=== PATIENT | female | born 1965 | race Caucasian/White ===

== ENCOUNTER 2016-11-29 19:51 | Emergency (ER) | payer MEDICARE, OTHER ==
[~2016-11-29 19:51] MED LIST: ABILIFY10 PO; ABILIFY15 PO; ADVAIR250 INH; AFEDITAB30 MG PO; ALBUTEROL5 INH; ALER-CAP25 MG PO; AMBIEN CR12.5 MG PO; APRES25 PO; APRES50 PO; ASAB PO; ASACOL 400MG PO; ASACOL HD800 MG PO; ASACOL PO; ATARAX50B PO; ATV.5 PO; ATV1 PO; AUG500 PO; BEN25 PO; C5 PO; CALTRA600D PO; CAT1 PO; CAT3 PO; CENTRUM TAB1 TAB PO; CLARIT10 PO; COREG12 PO; COREG25 PO; COUMADIN4 MG PO; COUMADIN6 MG PO; COZ50 PO; COZAAR100 MG PO; DELZICOL 400 M400 MG PO; DEMA100 PO; DEMA20 PO; DEPAK250ER PO; DIL2TAB PO; DIOV160 PO; DSS PO; DURA25 TOP; EMLA TOP; FISH-EPA1000 MG PO; FLEX PO; FLORASTOR250 MG PO; FLUCON150 PO; GLUCOTRO10 PO; HUMALOG PUMP; HUMALOG SC; HUMALOGPEN SC; HUMAMIXPEN SC; HUMAPUMP SC; IMOD PO; INVANZ1 G1 IV; IODOSORB TOP; JANUVIA100 MG PO; L20 PO; L40 PO; LANTUS SC; LEVAQUIN5T PO; LEVOTHYROXIN100 MCG PO; LEVOXYL100 MCG PO; LIDODERM T; LIDODERM TOP; LISINOPRIL40 MG PO; LORTAB 5 PO; LORTAB10 PO; LOSARTAN PO; LOVENOX40 SC; LOZOLTAB PO; MACROBID PO; MAGOX4 PO; MAXALT10 MG PO; MEDI HONEY TOP; MELA3 PO; MEVACOR40 MG PO; MIDODRINE10 MG OR; MIRALAXPKT PO; MOMUD PO; MORPHINE SULFATE; MULTIPLE VIT PO; MULTIVITAMI1 PO; MYTAB GAS125 MG PO; NARCAN SC; NASONEX NAS; NEO-OINT TOP; NEUR100 PO; NEUR300 PO; NEUR600 PO; NEUR800 PO; NEXIUM40 PO; NITROQUICK0.4 MG SL; NORCO1 TA1 PO; NORCO1 TA2 PO; NORCO1 TAB PO; NORV10 PO; NORV25 PO; NORV5 PO; NOVLOGPUMP SC; NOVOLOG; NOVOLOG PUMP SC; NOVOLOG SC; OXYCOD5CAP PO; OXYCON10 PO; OXYCONTIN15 MG PO; OXYCONTIN30 MG PO; PAX20 PO; PAXIL30 MG PO; PCET PO; PERCOCET1 TA4 PO; PHENERGAN25 MG/ML PO; PHOSLO PO; PR12.5 PO; PR25 PO; PR25R PR; PRENATABS PO; PRILOSEC40 MG PO; PRIN10 PO; PRIN20 PO; PROAIR HFA INH; PROAIR HFA PO; PROTONIX PO; PROVENTSOL INH; REG PO; REG5 PO; REGLAN5 MG OR; RENVELA800 MG PO; RESTORIL30 MG OR; SEROQUEL XR400 MG PO; SEROQUEL400 MG PO; SILVADENE1 % TOP; SODBICAR10 PO; SORB PO; SPIRIVA INH; SYMBICORT 160/41 INH INH; SYMBICORT INH; SYMBICORT PO; SYN1 PO; SYN112 PO; SYN88 PO; SYNTEST H.S. PO; T PO; TOPAMAX25 PO; TORATAB PO; TRICOR145 PO; TUMSROLL PO; UTA OR; VENTOLIN HFA INH; VITAMIN C100 MG PO; VITAMIN D1000 UNI1 PO; VITC500 PO; VOLTAREN1 % TOP; X25 PO; Z100 PO; ZAROX2.5B PO; ZOCOR20 PO; ZOCOR40 PO; ZOCOR80 MG PO; ZOFRAN ODT4 MG PO; ZOFRAN4 PO; ZOSYN; ZOSYN375 IV; ZYDONE1 TA2 PO; ZYRTEC ALLGY10 MG PO; ZYVOXPO PO; [UNRECOGNIZED DRUG - MIXTURE]; [UNRECOGNIZED DRUG - OTHER]; [UNRECOGNIZED DRUG - OTHER]; [UNRECOGNIZED DRUG - OTHER] OR; [UNRECOGNIZED DRUG - OTHER] PO; [UNRECOGNIZED DRUG - OTHER] PO
[2016-11-29 20:14] LABS: BASOPHILS 0.6 %; BASOPHILS ABSOLUTE 0.08 10/3/uL (0.0-0.16); EOSINOPHILS 3.8 %; EOSINOPHILS ABSOLUTE 0.54 10/3/uL (0.0-0.53); ER CBC TAT 0 Hrs 11 Mins; HEMATOCRIT 31.5 % (36.0-48.0); HEMOGLOBIN 9.7 g/dL (12.0-16.0); IMMATURE GRANULOCYTES 1.9 %; IMMATURE GRANULOCYTES ABSOLUTE 0.27 10/3/uL (0.0-0.11); LYMPHOCYTES 17.8 %; LYMPHOCYTES ABSOLUTE 2.52 10/3/uL (0.67-4.30); MANUAL DIFF NO %; MEAN CORPUS HGB CONC 30.8 g/dL (32.0-36.0); MEAN CORPUSCULAR HEMOGLOB 32.8 pg (26.0-34.0); MEAN CORPUSCULAR VOLUME 106.4 fL (80-100); MEAN PLATELET VOLUME 9.4 fL (9.2-13.0); MONOCYTES 5.1 %; MONOCYTES ABSOLUTE 0.72 10/3/uL (0.21-1.20); NEUTROPHILS 70.8 %; NUCLEATED RED BLOOD CELLS 0.4 /100WBC (0-0); PLATELET COUNT 320 10/3/uL (150-400); RBC DISTRIBUTION WIDTH 15.9 % (12.0-16.0); RED CELL COUNT 2.96 10/6/uL (4.0-5.6); WHITE BLOOD CELLS 14.1 10/3/uL (4.5-10.5)
[2016-11-29 20:23] LABS: A/G RATIO 0.4 (0.7-1.9); ALBUMIN 2.5 G/DL (3.5-5.0); ALKALINE PHOSPHATASE 407 U/L (45-117); BUN (BLOOD UREA NITROGEN) 22 MG/DL (6-23); CALCIUM, SERUM 8.7 MG/DL (8.5-10.4); CHLORIDE, SERUM 94 MMOL/L (96-112); CO2 (CARBON DIOXIDE) 30 MMOL/L (24-34); CREATININE 3.96 MG/DL (0.55-1.02); GFR AFRICAN AMERICAN 14 ML/MIN (>=60); GFR NON AFRICAN AMERICAN 12 ML/MIN (>=60); GLOBULIN 5.7 G/DL (2.5-4.1); GLUCOSE, SERUM 154 MG/DL (60-99); POTASSIUM, SERUM 3.9 MMOL/L (3.5-5.3); SGOT(AST) 46 U/L (5-40); SGPT(ALT) 38 U/L (5-65); SODIUM, SERUM 131 MMOL/L (135-148); TOTAL BILIRUBIN 0.3 MG/DL (0-1.2); TOTAL PROTEIN 8.2 G/DL (6.0-8.5)
[2016-11-29 20:31] LABS: ASCORBIC ACID (UR NOT ORDER) NEG (NEG); BILIRUBIN, URINE NEGATIVE (NEG); ER URINALYSIS TAT 0 Hrs 25 Mins; KETONE, URINE NEGATIVE (NEG); LEUKOCYTE ESTERASE(NOT OR LARGE (NEG); NITRITE (URINE) NEG (NEG); WBC (NOT ORDERED) (RFLEX) > 182 (0-5)
[2017-02-14] MEDS ORDERED: LEVEMIR SC (22:51)
[2017-02-14] MEDS ORDERED: COREG12 PO (22:51)
[2017-02-14] MEDS ORDERED: NEUR600 PO ×2 (22:52)
[2017-02-14] MEDS ORDERED: NORV5 PO (22:52)
[2017-02-14] MEDS ORDERED: NOVOLOG SC (22:52)
[2017-02-14] MEDS ORDERED: DEMA100 PO (22:53)
[2017-02-14] MEDS ORDERED: ZAROX2.5B PO (22:53)
[2017-02-14] MEDS ORDERED: ZOFRAN4 PO (22:53)
[2017-02-14] MEDS ORDERED: DSS PO (22:53)
[2017-02-14] MEDS ORDERED: PERCOCET 10/3251 TAB PO (22:54)
[2017-02-14] MEDS ORDERED: DURA12 TOP (22:54)
[2017-02-14] MEDS ORDERED: PROTONIX PO (22:55)
[2017-02-14] MEDS ORDERED: ANASPAZ0.125 MG PO (22:55)
[2017-02-14] MEDS ORDERED: SEROQUEL400 MG PO (22:55)
[2017-02-14] MEDS ORDERED: DURA25 TOP (22:55)
[2017-02-14] MEDS ORDERED: NYSTATPOW TOP (22:56)
[2017-03-03] MEDS ORDERED: SANTYL (15:33)
[2017-03-23] MEDS ORDERED: DURA50 TOP (13:22)
[2017-03-23] MEDS ORDERED: MIRALAX POWDER1 PKT PO (13:23)
[2017-03-23] MEDS ORDERED: NITROSTAT0.4 MG SL (13:24)
[2017-03-23] MEDS ORDERED: VENTOLIN HFA INH (13:24)
[2017-04-07] MEDS ORDERED: FLORASTOR250 MG PO (15:00)
== END 2016-11-29 22:00 | disposition home or self-care (01) ==
LOC: ER 19:51
PROVIDERS: Hospitalist
DX: N39.0 Urinary tract infection, site not specified (principal); D21.9 Benign neoplasm of connective and other soft tissue, unspecified; E11.22 Type 2 diabetes mellitus with diabetic chronic kidney disease; I12.9 Hypertensive chronic kidney disease with stage 1 through stage 4 chronic kidney disease, or unspecified chronic kidney disease; N18.9 Chronic kidney disease, unspecified; J44.9 Chronic obstructive pulmonary disease, unspecified; D64.9 Anemia, unspecified; F31.9 Bipolar disorder, unspecified; Z88.6 Allergy status to analgesic agent; Z88.5 Allergy status to narcotic agent; Z88.1 Allergy status to other antibiotic agents; Z91.041 Radiographic dye allergy status; Z79.4 Long term (current) use of insulin; Z79.899 Other long term (current) drug therapy
CPT/HCPCS: 74176; 80053; 81001; 83690; 85025; 87077; 87086; 87186; 99284

== ENCOUNTER 2016-12-08 12:28 | Emergency (ER) | payer MEDICARE, OTHER ==
[2016-12-08 14:53] LABS: BASOPHILS 0.4 %; BASOPHILS ABSOLUTE 0.07 10/3/uL (0.0-0.16); EOSINOPHILS 2.1 %; EOSINOPHILS ABSOLUTE 0.34 10/3/uL (0.0-0.53); ER CBC TAT 0 Hrs 05 Mins; HEMATOCRIT 31.2 % (36.0-48.0); HEMOGLOBIN 9.9 g/dL (12.0-16.0); IMMATURE GRANULOCYTES 0.5 %; LYMPHOCYTES 10.4 %; MEAN CORPUS HGB CONC 31.7 g/dL (32.0-36.0); MEAN CORPUSCULAR HEMOGLOB 32.6 pg (26.0-34.0); MEAN PLATELET VOLUME 9.3 fL (9.2-13.0); MONOCYTES 4.6 %; MONOCYTES ABSOLUTE 0.76 10/3/uL (0.21-1.20); PLATELET COUNT 288 10/3/uL (150-400); RBC DISTRIBUTION WIDTH 15.8 % (12.0-16.0); RED CELL COUNT 3.04 10/6/uL (4.0-5.6); WHITE BLOOD CELLS 16.4 10/3/uL (4.5-10.5)
[2016-12-08 14:54] LABS: IMMATURE GRANULOCYTES ABSOLUTE 0.08 10/3/uL (0.0-0.11); MANUAL DIFF NO %; MEAN CORPUSCULAR VOLUME 102.6 fL (80-100)
[2016-12-08 15:07] LABS: A/G RATIO 0.5 (0.7-1.9); ALBUMIN 2.6 G/DL (3.5-5.0); CALCIUM, SERUM 8.5 MG/DL (8.5-10.4); CHLORIDE, SERUM 93 MMOL/L (96-112); CO2 (CARBON DIOXIDE) 26 MMOL/L (24-34); GLOBULIN 5.6 G/DL (2.5-4.1); POTASSIUM, SERUM 4.1 MMOL/L (3.5-5.3); SGOT(AST) 15 U/L (5-40); SGPT(ALT) 15 U/L (5-65); SODIUM, SERUM 129 MMOL/L (135-148); TOTAL BILIRUBIN 0.3 MG/DL (0-1.2); TOTAL PROTEIN 8.2 G/DL (6.0-8.5)
[2016-12-08 15:09] LABS: ALKALINE PHOSPHATASE 281 U/L (45-117); BUN (BLOOD UREA NITROGEN) 16 MG/DL (6-23); CREATININE 3.21 MG/DL (0.55-1.02); GFR AFRICAN AMERICAN 18 ML/MIN (>=60); GFR NON AFRICAN AMERICAN 16 ML/MIN (>=60); GLUCOSE, SERUM 363 MG/DL (60-99)
[2016-12-08 15:14] LABS: BAND NEUTROPHILS 6 %; EOSINOPHILS 2 %; EOSINOPHILS ABSOLUTE (CALC) 0.33 10/3/uL (0.0-0.53); ER DIFF TAT 0 Hrs 26 Mins; GIANT PLATELET RARE; LYMPHOCYTES 10 %; LYMPHOCYTES ABSOLUTE (CALC) 1.64 10/3/uL (0.67-4.30); MACROCYTES 1+ (5-10/OIF) (0-5/OIF); NEUTROPHILS ABSOLUTE (CALC) 14.43 10/3/uL (2.02-8.40); PLATELET ESTIMATE ADQ (ADEQUATE); SEGMENTED NEUTROPHIL (0) 82 %; TEARDROP SHAPED RBCS OCC (0-2/OIF); TOTAL NUCLEATED CELLS 100
[2017-02-14] MEDS ORDERED: COREG12 PO (22:51)
[2017-02-14] MEDS ORDERED: LEVEMIR SC (22:51)
[2017-02-14] MEDS ORDERED: NOVOLOG SC (22:52)
[2017-02-14] MEDS ORDERED: NORV5 PO (22:52)
[2017-02-14] MEDS ORDERED: NEUR600 PO ×2 (22:52)
[2017-02-14] MEDS ORDERED: DEMA100 PO (22:53)
[2017-02-14] MEDS ORDERED: ZOFRAN4 PO (22:53)
[2017-02-14] MEDS ORDERED: ZAROX2.5B PO (22:53)
[2017-02-14] MEDS ORDERED: DSS PO (22:53)
[2017-02-14] MEDS ORDERED: PERCOCET 10/3251 TAB PO (22:54)
[2017-02-14] MEDS ORDERED: DURA12 TOP (22:54)
[2017-02-14] MEDS ORDERED: PROTONIX PO (22:55)
[2017-02-14] MEDS ORDERED: ANASPAZ0.125 MG PO (22:55)
[2017-02-14] MEDS ORDERED: SEROQUEL400 MG PO (22:55)
[2017-02-14] MEDS ORDERED: DURA25 TOP (22:55)
[2017-02-14] MEDS ORDERED: NYSTATPOW TOP (22:56)
[2017-03-03] MEDS ORDERED: SANTYL (15:33)
[2017-03-23] MEDS ORDERED: DURA50 TOP (13:22)
[2017-03-23] MEDS ORDERED: MIRALAX POWDER1 PKT PO (13:23)
[2017-03-23] MEDS ORDERED: NITROSTAT0.4 MG SL (13:24)
[2017-03-23] MEDS ORDERED: VENTOLIN HFA INH (13:24)
[2017-04-07] MEDS ORDERED: FLORASTOR250 MG PO (15:00)
== END 2016-12-08 17:56 | disposition home or self-care (01) ==
LOC: ER 12:28
PROVIDERS: Nurse Practitioner
DX: R10.30 Lower abdominal pain, unspecified (principal); J44.9 Chronic obstructive pulmonary disease, unspecified; E11.9 Type 2 diabetes mellitus without complications; Z88.8 Allergy status to other drugs, medicaments and biological substances; Z88.5 Allergy status to narcotic agent; Z91.041 Radiographic dye allergy status; Z79.4 Long term (current) use of insulin; Z79.899 Other long term (current) drug therapy
CPT/HCPCS: 74176; 80053; 81001; 82962; 83690; 85025; 96374; 96375; 99284; A9270-GY; J1170; J2405